=== PATIENT | male | born 1960 | race African-American/Black ===

== ENCOUNTER 2023-02-11 10:04 | Emergency (ER) | payer MEDICAID, OTHER ==
[~2023-02-11] VITALS: Ht 177.8 cm; Wt 91.0 kg
[2023-02-11 10:29] VITALS: BP 108/69; PULSE 77; RESP 15; TEMP 98.6; O2SAT 99
[2023-02-11] MEDS ORDERED: DIPHENHYDRAMINE 50MG/ML VIAL IM ONE (11:00)
[2023-02-11] MEDS ORDERED: DIPH25CA83 MT (11:02)
== END 2023-02-11 11:45 | disposition home or self-care (01) ==
LOC: ER 10:41
DX: L50.9 Urticaria, unspecified (principal)
CPT/HCPCS: 99283; 96372; J1200

== ENCOUNTER 2024-07-25 19:13 | Emergency (ER) | payer MEDICAID ==
[~2024-07-25] VITALS: Ht 182.9 cm; Wt 70.0 kg
[~2024-07-25 19:13] MED LIST: DIPH25CA83 MT
[2024-07-25 19:38] VITALS: O2SAT 100
[2024-07-25] MEDS ORDERED: DIPH25CA83 MT (20:33)
[2024-07-25 20:59] VITALS: BP 120/66; PULSE 67; RESP 20; TEMP 36.8; O2SAT 99
== END 2024-07-25 21:03 | disposition home or self-care (01) ==
LOC: ER 19:13
DX: H93.13 Tinnitus, bilateral (principal); F41.9 Anxiety disorder, unspecified; Z79.899 Other long term (current) drug therapy
CPT/HCPCS: 99282